=== PATIENT | male | born 1960 | race Caucasian/White ===

== ENCOUNTER 2016-12-18 11:17 | Emergency (ER) | payer BC ==
[2016-12-18] MEDS ORDERED: NS 0.9% 1000 ML* 2,000 ML IV ONE (12:27)
[2016-12-18] MEDS ORDERED: Ketorolac INJ* 30 MG/ML 1 ML VIAL IV ONE (12:27)
[2016-12-18] MEDS ORDERED: Morphine INJ* 4 MG/ML 1 ML CARPUJECT IV ONE ×2 (12:27→16:37)
[2016-12-18] MEDS ORDERED: Ondansetron INJ* 2 MG/ML VIAL IV ONE (12:27)
[2016-12-18 13:04] LABS: Urine Bacteria Absent (Absent); Urine Bilirubin Negative (Negative); Urine Glucose Negative (Negative); Urine Nitrite Negative (Negative)
[2016-12-18 13:10] LABS: Hematocrit 44 % (42-52); Hemoglobin 14.6 g/dl (14.0-18.0); Mean Corpuscular HGB Conc 33 g/dl (31-36); Mean Corpuscular Hemoglobin 30 pg (27-31); Mean Corpuscular Volume 91 fL (80-94); Mean Platelet Volume 9 um3 (7.4-10.4); Red Blood Count 4.81 10^6/ul (4.0-5.4); Red Cell Distribution Width 14 % (10.5-15); White Blood Count 14.6 10^3/ul (3.5-10.8)
--- NOTE | 2016-12-18 13:26 | RAD ---
CLINICAL HISTORY: Left flank and abdominal pain COMPARISON: None TECHNIQUE: Multiple contiguous axial CT scans were obtained of the abdomen and pelvis, without intravenous contrast enhancement. Coronal and sagittal multiplanar reformations are submitted for review. Oral contrast was not administered. FINDINGS: The study is limited by the lack of intravenous contrast. This limits evaluation of the solid organs and vasculature. LUNG BASES: The lung bases are clear. LIVER: The liver is normal in shape, size, contour, and attenuation. BILE DUCTS: There is no intrahepatic or extrahepatic biliary dilatation. GALLBLADDER: The gallbladder is normal, without pericholecystic inflammatory change. PANCREAS: The pancreas is normal, without mass or ductal dilatation. SPLEEN: Normal in size and appearance. UPPER GI TRACT: Evaluation of the gastrointestinal tract is limited by incomplete gastric distention. The upper GI tract is unremarkable. SMALL BOWEL AND MESENTERY: The small bowel is normal in contour, course, and caliber. There is no obstruction or dilatation. COLON: The colon is normal in contour, course, caliber. There is no pericolonic inflammatory change. ADRENALS: Normal bilaterally. KIDNEYS: There is perinephric stranding on the left. There are punctate calyceal stones bilaterally. There is minimal pelvic caliectasis on the left. There is a 0.3 cm calculus of the left UPJ. BLADDER: The bladder is smooth in contour. PELVIC ORGANS: The prostate gland is normal. The seminal vesicles are symmetric. AORTA: The aorta is normal. IVC: Unremarkable LYMPH NODES: There is no lymphadenopathy by size criteria. ABDOMINAL WALL: There is a large fat-containing umbilical hernia BONES AND SOFT TISSUES: Mild degenerative changes are noted OTHER: None IMPRESSION: 1. BILATERAL NEPHROLITHIASIS WITH A 0.3 CM LEFT UPJ STONE AND MINIMAL HYDRONEPHROSIS ON THE LEFT. 2. LARGE FAT-CONTAINING UMBILICAL HERNIA
[2016-12-18] MEDS ORDERED: Tamsulosin CAP* 0.4 MG PO ONE (13:38)
[2016-12-18 16:24] LABS: ALT 15 U/L (7-52); Albumin 4.4 g/dL (3.2-5.2); Alkaline Phosphatase 66 U/L (34-104); BUN/Creatinine Ratio 24.4 (8-20); Blood Urea Nitrogen 22 mg/dL (6-24); CO2 Carbon Dioxide 26 mmol/L (22-32); Calcium 9.4 mg/dL (8.6-10.3); Chloride 100 mmol/L (101-111); EGFR African American 112.7 (>60); EGFR Non-African American 87.6 (>60); Globulin 3.3 g/dL (2-4); Glucose 83 mg/dL (70-100); Sodium 131 mmol/L (133-145); Total Protein 7.7 g/dL (6.4-8.9)
[2016-12-18] MEDS ORDERED: oxyCODONE/Acetamin 5/325 MG* TAB PO ONE (16:37)
--- NOTE | 2016-12-18 16:43 | ED ---
Colt Menendez Anna, scribed for Domingo Jones MD on 12/18/16 at 1231 . Abdominal Pain/Male - HPI Summary HPI Summary: Patient is a 56 y/[facility] with the sudden onset of intermittent left flank pain that began two hours ago. He describes the pain as severity 9/10. He has additionally experienced an increase in the frequency of urination. Nothing alleviates or exacerbates the pain. Denies Hx of renal calculi or previous abd surgeries. NKDA. - History of Current Complaint Chief Complaint: EDFlankPain Stated Complaint: LT SIDE FLANK PAIN Time Seen by Provider: 12/18/16 11:44 Hx Obtained From: Patient, Family/Handy Worker - Accompanied by Pain Intensity: 9 Pain Scale Used: 0-10 Numeric - Allergies/Home Medications Allergies/Adverse Reactions: Allergies Allergy/AdvReac Type Severity Reaction Status Date / Time No Known Allergies Allergy Verified 12/18/16 11:34 PMH/Surg Hx/FS Hx/Imm Hx Endocrine/Hematology History: Denies: Hx Diabetes Cardiovascular History: Reports: Hx Angina, Hx Hypertension Denies: Hx Congestive Heart Failure, Hx Coronary Artery Disease, Hx Hypercholesterolemia, Hx Myocardial Infarction, Hx Valvular Heart Disease Respiratory History: Reports: Hx Asthma - allergies, Hx Seasonal Allergies, Hx Sleep Apnea Denies: Hx Chronic Obstructive Pulmonary Disease (COPD) History: Denies: Hx Kidney Stones Musculoskeletal History: Reports: Hx Arthritis, Other Musculoskeletal History - (right) hip Sensory History: Reports: Hx Contacts or Glasses Opthamlomology History: Reports: Hx Contacts or Glasses Neurological History: Reports: Other Neuro Impairments/Disorders - vertigo since 12/28/12 Psychiatric History: Reports: Hx Anxiety - PRN [facility] [place] for travel anxiety - Surgical History Surgery Procedure, Year, and Place: 2008- [facility] - radiofrequency closure of (right ) greater saphenous vein Infectious Disease History: No Infectious Disease History: Denies: Traveled Outside the [place] in Last 30 Days - Family History Known Family History: Positive: Hypertension, Diabetes, Other - gout Negative: Cardiac Disease - Social History Occupation: Employed Full-time Lives: With Family Alcohol Use: None Substance Use Type: Reports: None Smoking Status (MU): Never Smoked Tobacco Review of Systems Positive: Abdominal Pain - flank pain Positive: frequency All Other Systems Reviewed And Are Negative: Yes Physical Exam Triage Information Reviewed: Yes Vital Signs On Initial Exam: Initial Vitals Temp Pulse Resp BP Pulse Ox 97.7 F 75 16 146/81 98 12/18/16 11:34 12/18/16 11:34 12/18/16 11:34 12/18/16 11:34 12/18/16 11:34 Vital Signs Reviewed: Yes Appearance: Positive: Well-Appearing, Pain Distress - moderate Skin: Positive: Warm, Skin Color Reflects Adequate Perfusion, Dry Head/Face: Positive: Normal Head/Face Inspection Eyes: Positive: EOMI, JUSTIN ENT: Positive: Normal ENT inspection Neck: Positive: Supple, Nontender Respiratory/Lung Sounds: Positive: Clear to Auscultation, Breath Sounds Present Cardiovascular: Positive: RRR Abdomen Description: Positive: Nontender, Soft Bowel Sounds: Positive: Present Musculoskeletal: Positive: Normal, Strength/ROM Intact Neurological: Positive: Normal, Sensory/Motor Intact, Alert, Oriented to Person Place, Time Psychiatric: Positive: Affect/Mood Appropriate - Judd Coma Scale Coma Scale Total: 15 Diagnostics - Vital Signs Vital Signs Temp Pulse Resp BP Pulse Ox 12/18/16 12:04 97.8 F 80 20 134/72 96 12/18/16 12:03 97.8 F 72 20 149/78 96 12/18/16 12:01 97.8 F 75 20 149/78 100 12/18/16 11:34 97.7 F 75 16 146/81 98 - Laboratory Lab Results: Lab Results 12/18/16 12/18/16 12/18/16 Range/Units 12:25 13:00 13:00 WBC 14.6 H (3.5-10.8) 10^3/ul RBC 4.81 (4.0-5.4) 10^6/ul Hgb 14.6 (14.0-18.0) g/dl Hct 44 (42-52) % MCV 91 (80-94) fL MCH 30 (27-31) pg MCHC 33 (31-36) g/dl RDW 14 (10.5-15) % Plt Count 275 (150-450) 10^3/ul MPV 9 (7.4-10.4) um3 Neut % (Auto) 79.7 (38-83) % Lymph % (Auto) 10.3 L (25-47) % Jackson % (Auto) 7.1 (1-9) % Eos % (Auto) 2.3 (0-6) % Baso % (Auto) 0.6 (0-2) % Absolute Neuts (auto) 11.7 H (1.5-7.7) 10^3/ul Absolute Lymphs (auto) 1.5 (1.0-4.8) 10^3/ul Absolute Monos (auto) 1.0 H (0-0.8) 10^3/ul Absolute Eos (auto) 0.3 (0-0.6) 10^3/ul Absolute Basos (auto) 0.1 (0-0.2) 10^3/ul Absolute Nucleated RBC 0 10^3/ul Nucleated RBC % 0 INR (Anticoag Therapy) 0.96 (0.89-1.11) APTT 34.8 (26.0-36.3) seconds Sodium (133-145) mmol/L Potassium Chloride (101-111) mmol/L Carbon Dioxide (22-32) mmol/L Anion Gap BUN (6-24) mg/dL Creatinine (0.67-1.17) mg/dL Est GFR ( Amer) (>60) Est GFR (Non-Af Amer) (>60) BUN/Creatinine Ratio (8-20) Glucose (70-100) mg/dL Calcium (8.6-10.3) mg/dL Total Bilirubin (0.2-1.0) mg/dL AST ALT (7-52) U/L Alkaline Phosphatase (34-104) U/L Total Protein (6.4-8.9) g/dL Albumin (3.2-5.2) g/dL Globulin (2-4) g/dL Albumin/Globulin Ratio (1-3) Urine Color Yellow Urine Appearance Clear Urine pH 5.0 (5-9) Ur Specific [place] 1.014 (1.010-1.030) Urine Protein Negative (Negative) Urine Ketones Negative (Negative) Urine Blood 2+ H (Negative) Urine Nitrate Negative (Negative) Urine Bilirubin Negative (Negative) Urine Urobilinogen Negative (Negative) Ur Leukocyte Esterase Negative (Negative) Urine WBC (Auto) Absent (Absent) Urine RBC (Auto) 2+(6-10/hpf) H (Absent) Ur Squamous Epith Cells Present H (Absent) Urine Bacteria Absent (Absent) Urine Glucose Negative (Negative) 12/18/16 Range/Units 13:00 WBC (3.5-10.8) 10^3/ul RBC (4.0-5.4) 10^6/ul Hgb (14.0-18.0) g/dl Hct (42-52) % MCV (80-94) fL MCH (27-31) pg MCHC (31-36) g/dl RDW (10.5-15) % Plt Count (150-450) 10^3/ul MPV (7.4-10.4) um3 Neut % (Auto) (38-83) % Lymph % (Auto) (25-47) % Jackson % (Auto) (1-9) % Eos % (Auto) (0-6) % Baso % (Auto) (0-2) % Absolute Neuts (auto) (1.5-7.7) 10^3/ul Absolute Lymphs (auto) (1.0-4.8) 10^3/ul Absolute Monos (auto) (0-0.8) 10^3/ul Absolute Eos (auto) (0-0.6) 10^3/ul Absolute Basos (auto) (0-0.2) 10^3/ul Absolute Nucleated RBC 10^3/ul Nucleated RBC % INR (Anticoag Therapy) (0.89-1.11) APTT (26.0-36.3) seconds Sodium 131 L (133-145) mmol/L Potassium TNP Chloride 100 L (101-111) mmol/L Carbon Dioxide 26 (22-32) mmol/L Anion Gap TNP BUN 22 (6-24) mg/dL Creatinine 0.90 (0.67-1.17) mg/dL Est GFR ( Amer) 112.7 (>60) Est GFR (Non-Af Amer) 87.6 (>60) BUN/Creatinine Ratio 24.4 H (8-20) Glucose 83 (70-100) mg/dL Calcium 9.4 (8.6-10.3) mg/dL Total Bilirubin 0.50 (0.2-1.0) mg/dL AST TNP ALT 15 (7-52) U/L Alkaline Phosphatase 66 (34-104) U/L Total Protein 7.7 (6.4-8.9) g/dL Albumin 4.4 (3.2-5.2) g/dL Globulin 3.3 (2-4) g/dL Albumin/Globulin Ratio 1.3 (1-3) Urine Color Urine Appearance Urine pH (5-9) Ur Specific [place] (1.010-1.030) Urine Protein (Negative) Urine Ketones (Negative) Urine Blood (Negative) Urine Nitrate (Negative) Urine Bilirubin (Negative) Urine Urobilinogen (Negative) Ur Leukocyte Esterase (Negative) Urine WBC (Auto) (Absent) Urine RBC (Auto) (Absent) Ur Squamous Epith Cells (Absent) Urine Bacteria (Absent) Urine Glucose (Negative) Result Diagrams: 12/18/16 13:00 12/18/16 13:00 Lab Statement: Any lab studies that have been ordered have been reviewed, and results considered in the medical decision making process. - CT CT abd/pel CT Interpretation: Positive (See Comments) CT Interpretation Completed By: Radiologist - IMPRESSION: 1. BILATERAL NEPHROLITHIASIS WITH A 0.3 CM LEFT UPJ STONE AND MINIMAL HYDRONEPHROSIS ON THE LEFT. 2. LARGE FAT-CONTAINING UMBILICAL HERNIA Re-Evaluation - Re-Evaluation First Eval Re-Evaluation Time: 13:42 Change: Improved Comment: Patient's pain is somewhat alleviated following medication. Second Eval Re-Evaluation Time: 16:29 Comment: Discussed results and plan of care with patient and family. Patient and family agree with plan. Abdominal Pain Fem Course/Dx - Course Assessment/Plan: Pain improved in ed. Discussed results with patient/. Discharge home stable. - Diagnoses Provider Diagnoses: Kidney stone Discharge - Discharge Plan Condition: Stable Disposition: HOME Prescriptions: Tamsulosin CAP* [Flomax CAP*] 0.4 mg PO DAILY #5 cap oxyCODONE/Acetamin 5/325 MG* [Percocet 5/325 TAB*] 1 tab PO Q4H PRN #20 tab MDD 6 PRN Reason: Pain Patient Education Materials: Kidney Stones (ED) Forms: *Work Release Referrals: Jose Alfredo Cormier MD [Primary Care Provider] - Additional Instructions: FOLLOW UP WITH YOUR PRIMARY CARE DOCTOR AND UROLOGY. RETURN TO THE EMERGENCY DEPARTMENT FOR ANY WORSENING OF YOUR CONDITION; PAIN, FEVER, YOU FEEL ILL OR QUESTIONS OR CONCERNS. The documentation as recorded by the Colt estrada Anna accurately reflects the service I personally performed and the decisions made by me, Domingo Jones MD.
[2016-12-18 17:05] VITALS: BP 147/84
== END 2016-12-18 17:15 | disposition home or self-care (01) ==
LOC: ED 11:17
DX: N20.0 Calculus of kidney (principal); K42.9 Umbilical hernia without obstruction or gangrene; R10.84 Generalized abdominal pain; R35.0 Frequency of micturition
CPT/HCPCS: 36415; 74176; 80053; 81003; 81015; 85025; 85610; 85730; 96374; 96375; 99284; A9270-GY; J1885; J2270; J2405

== ENCOUNTER 2017-12-16 06:02 | Emergency (ER) | payer BC ==
--- NOTE | 2017-12-16 06:58 | ED ---
Merna Menendez Julia, scribed for Huy Dorsey MD on 12/16/17 at 0650 . Shortness of Breath - HPI Summary HPI Summary: This patient is a 57 year old M [facility] accompanied by his with a chief complaint of SOB last night and upon waking this morning that felt like suffocating, but is currently feeling better. He states he used his CPAP last night with mild relief. He reports intermittent bouts of SOB for the past 6 months. He only uses one pillow while sleeping. Patient denies chest pain, leg pain, wheezing, coughing, and congestion. - History of Current Complaint Chief Complaint: EDShortnessOfBreath Time Seen by Provider: 12/16/17 06:32 Hx Obtained From: Patient Onset/Duration: Lasting Hours Timing: Intermittent Episodes Lasting: Current Severity: Mild Dyspnea At: Rest Associated Signs & Symptoms: Negative Related History: Obesity - Allergy/Home Medications Allergies/Adverse Reactions: Allergies Allergy/AdvReac Type Severity Reaction Status Date / Time No Known Allergies Allergy Verified 12/18/16 11:34 PMH/Surg Hx/FS Hx/Imm Hx Endocrine/Hematology History: Denies: Hx Diabetes Cardiovascular History: Reports: Hx Angina, Hx Hypertension Denies: Hx Congestive Heart Failure, Hx Coronary Artery Disease, Hx Hypercholesterolemia, Hx Myocardial Infarction, Hx Valvular Heart Disease Respiratory History: Reports: Hx Asthma - allergies, Hx Seasonal Allergies, Hx Sleep Apnea Denies: Hx Chronic Obstructive Pulmonary Disease (COPD) History: Denies: Hx Kidney Stones Musculoskeletal History: Reports: Hx Arthritis, Other Musculoskeletal History - (right) hip Sensory History: Reports: Hx Contacts or Glasses Opthamlomology History: Reports: Hx Contacts or Glasses Neurological History: Reports: Other Neuro Impairments/Disorders - vertigo since 12/28/12 Psychiatric History: Reports: Hx Anxiety - PRN Ativan for travel anxiety - Surgical History Surgery Procedure, Year, and Place: [facility] [place] - radiofrequency closure of (right ) greater saphenous vein Infectious Disease History: No Infectious Disease History: Denies: Traveled Outside the [place] in Last 30 Days - Family History Known Family History: Positive: Hypertension, Diabetes, Other - gout Negative: Cardiac Disease - Social History Alcohol Use: None Substance Use Type: Reports: None Smoking Status (MU): Never Smoked Tobacco Review of Systems Negative: Chest Pain Respiratory: Negative - wheezing and chest congestion Positive: Shortness Of Breath. Negative: Cough Negative: Myalgia - leg pain All Other Systems Reviewed And Are Negative: Yes Physical Exam - Summary Physical Exam Summary: Appearance: Well appearing, no pain distress, morbidly obese Skin: warm, dry, reflects adequate perfusion Head/face: normal Eyes: EOMI, JUSTIN ENT: normal, no nasal discharge, mucous membranes are emma Neck: supple, non-tender, no JVD, no lymphadenopathy Respiratory: CTA, breath sounds present, normal working breathing Cardiovascular: RRR, pulses symmetrical, no murmur Abdomen: non-tender, soft, umbilical hernia Bowel: present Musculoskeletal: normal, strength/ROM intact, no LE edema, cyst on R posterior shoulder Neuro: normal, sensory motor intact, A&Ox3 Triage Information Reviewed: Yes Vital Signs On Initial Exam: Initial Vitals Temp Pulse Resp BP Pulse Ox 98 F 76 24 170/81 99 12/16/17 06:03 12/16/17 06:03 12/16/17 06:03 12/16/17 06:03 12/16/17 06:03 Vital Signs Reviewed: Yes Diagnostics - Vital Signs Vital Signs Temp Pulse Resp BP Pulse Ox 12/16/17 06:25 72 15 96 12/16/17 06:23 147/81 12/16/17 06:03 98 F 76 24 170/81 99 - Laboratory Lab Statement: Any lab studies that have been ordered have been reviewed, and results considered in the medical decision making process. Course/Dx - Course Course Of Treatment: morbidly obese with intermittent SOB over 6mo, worse today when trying to wear his CPAP. He felt machine was working appropriately. No recent illness. No CP, sats well. No leg pain. Labs/CXR and ABG pending at sign out. Sign out to Dr. Ponce at 7am. - Diagnoses Provider Diagnoses: Morbidly obese, History of obstructive sleep apnea, Dyspnea Discharge - Discharge Plan Condition: Stable Disposition: OTHER Discharge Disposition Comment: Pt is signed out to Dr. Ponce at the end of shift Referrals: Jose Alfredo Cormier MD [Primary Care Provider] - The documentation as recorded by the Merna estrada Julia accurately reflects the service I personally performed and the decisions made by me, Huy Dorsey MD.
[2017-12-16 07:40] LABS: ABS Basophils 0.1 10^3/ul (0-0.2); ABS Eosinophils 0.2 10^3/ul (0-0.6); ABS Lymphocytes 1.4 10^3/ul (1.0-4.8); ABS Monocytes 0.8 10^3/ul (0-0.8); ABS Neutrophils 6.6 10^3/ul (1.5-7.7); ABS Nucleated RBC 0 10^3/ul; Eosinophil % 2.4 % (0-6); Hematocrit 42 % (42-52); Hemoglobin 14.7 g/dl (14.0-18.0); Lymphocyte % 15.7 % (25-47); Mean Corpuscular HGB Conc 35 g/dl (31-36); Mean Corpuscular Hemoglobin 31 pg (27-31); Mean Corpuscular Volume 91 fL (80-94); Mean Platelet Volume 8 um3 (7.4-10.4); Nucleated Red Blood Cells % 0.1; Platelet Count 277 10^3/ul (150-450); Red Blood Count 4.68 10^6/ul (4.0-5.4); Red Cell Distribution Width 14 % (10.5-15); White Blood Count 9.1 10^3/ul (3.5-10.8)
[2017-12-16 07:55] LABS: EGFR Non-African American 111.1 (>60)
--- NOTE | 2017-12-16 08:43 | RAD ---
INDICATION: Shortness of breath. COMPARISON: Comparison is made with a prior study from March 01, 2015. TECHNIQUE: Dual-energy PA and lateral views of the chest were obtained. FINDINGS: The heart is within normal limits in size. Mediastinal and hilar contours appear within normal limits. The lungs are underinflated and clear. No pleural effusion is seen. IMPRESSION: NO EVIDENCE FOR ACTIVE CARDIOPULMONARY DISEASE.
[2017-12-16 11:25] VITALS: BP 135/70
--- NOTE | 2017-12-16 22:00 | ED ---
Brian Menendez Tiffany, scribed for Montse Markham MD on 12/16/17 at 0957 . Progress - Progress Note Progress Note: Patient not signed out to Dr. Ponce. Dr. Markham will assume patient care. - EKG/XRAY/CT XRAY: chest - Radiologist interprets NO EVIDENCE FOR ACTIVE CARDIOPULMONARY DISEASE. ED physician has reviewed this radiology report. Course/Dx - Course Course Of Treatment: 10:58 reevaluation The documentation as recorded by the Brian estrada Tiffany accurately reflects the service I personally performed and the decisions made by Rashi garcia Barbara J, MD.
== END 2017-12-16 11:24 | disposition home or self-care (01) ==
LOC: ED 06:02
DX: R06.09 Other forms of dyspnea (principal); R06.02 Shortness of breath; I10 Essential (primary) hypertension; I20.9 Angina pectoris, unspecified; F41.9 Anxiety disorder, unspecified; E66.01 Morbid (severe) obesity due to excess calories; G47.33 Obstructive sleep apnea (adult) (pediatric); I45.10 Unspecified right bundle-branch block; Z79.899 Other long term (current) drug therapy
CPT/HCPCS: 36415; 71046; 80053; 83880; 84443; 84484; 85025; 93005; 99283

== ENCOUNTER 2019-12-08 08:46 | Emergency (ER) | payer BC, OTHER ==
--- OUTSIDE RECORDS SUMMARY | 2019-12-08 09:00 | XMS REPORT | Continuity of Care Document ---
:1960 External Reference #:[id number] Author Name Maureen Reardon NP (transmitted by agent of provider Julia Whelan) Address [address], [address] [place] [address] Care Team Providers Name Role Phone Jose Alfredo Cormier MD - Family Medicine Care Team Information Living Supervisor Problems Active Problems Provider Date Essential hypertension Zohreh Laird M.D. Onset: 03/25/2015 Morbid obesity Az Yousif M.D., [facility] Onset: 04/12/2015 Abnormal results of cardiovascular Az Yousif M.D., [facility] Onset: function studies Obstructive sleep apnea of adult Cher Stover DNP, RN, Onset: 04/15/2015 [facility] Note: severe Right bundle branch block Az Yousif M.D., [facility] Onset: 10/11/2015 Difficulty breathing Az Yousif M.D., [facility] Onset: 10/11/2015 Social History Type Date Description Comments Sex Unknown Tobacco Use Start: Unknown Never Smoked Cigarettes Smoking Status Reviewed: 11/26/19 Never Smoked Cigarettes ETOH Use Rarely consumes beer Tobacco Use Start: Unknown Patient has never smoked Recreational Drug Use Denies Drug Use Exercise Type/Frequency Exercises sporadically Allergies, Adverse Reactions, Alerts Description No Known Drug Allergies Medications Active Medications SIG Qnty Indications Ordering Provider Date Toprol XL 1 by mouth every Unknown 100mg Tablets day ER 24HR Spironolactone/Hydroch 1 by mouth every Unknown lorothiazide day 25-25mg Tablets Albuterol Inhaler 2 puffs every 4 hr Unknown as needed Aspirin 1 daily Unknown 81mg Fluticasone Propionate 2 sprays each Unknown nostril everyday 50mcg/Act Suspension Cpap qhs Unknown Breo Ellipta 1 puff inhaled Unknown daily 100-25mcg/Inh Aerosol Citalopram 3 tabs by mouth Jose Alfredo Cormier, Hydrobromide every evening 10mg Tablets Medications Administered in Office Medication SIG Qnty Indications Ordering Provider Date Depomedrol 80MG HETAL Gordon 08/09/2011 Injection Depomedrol 80MG HETAL Gordon 05/29/2011 Injection Immunizations CPT Code Status Date Vaccine Lot # [id number] Given 04/15/2015 Fluvirin Im 3Yrs And Older Vital Signs Date Vital Result Comment 11/26/2019 2:06pm Height 68 inches 5'8" Weight 347.00 lb Heart Rate 76 /min BP Systolic Sitting 150 mmHg Lue large cuff BP Diastolic Sitting 82 mmHg Lue large cuff O2 % BldC Oximetry 96 % On Ra BMI (Body Mass Index) 52.8 kg/m2 02/05/2019 10:27am Height 68 inches 5'8" Weight 342.00 lb Heart Rate 67 /min BP Systolic Sitting 136 mmHg BP Diastolic Sitting 76 mmHg Respiratory Rate 20 /min O2 % BldC Oximetry 96 % room air BMI (Body Mass Index) 52.0 kg/m2 Results Description No Information Available Procedures Date Code Description Status 11/10/2019 53115 Diffusing Capacity Completed 11/10/2019 81086 Plethysmography Determination Lung Volumes & Per Airway Completed Resist 11/10/2019 27356 Pulmonary Function><Bronchodil Completed Medical Devices Description No Information Available Encounters Type Date Location Provider Dx Diagnosis Office Visit 11/26/2019 [facility]en J45.909 Unspecified asthma, 2:[facility] uncomplicated Is Analyst G47.33 Obstructive sleep apnea (adult) (pediatric) E66.9 Obesity, unspecified Assessments Date Code Description Provider 11/26/2019 J45.909 Unspecified asthma, uncomplicated aMureen Reardon NP 11/26/2019 G47.33 Obstructive sleep apnea (adult) (pediatric) Maureen Reardon NP 11/26/2019 E66.9 Obesity, unspecified Maureen Alexys, MEDICAL LAB TECHNOLOGIST 11/10/2019 J45.909 Unspecified asthma, uncomplicated Letty Chauhan MD Plan of Treatment Future Appointment(s):11/25/2020 2:30 pm - Maureen [facility]ardon [facility]11/26/2019 - Maureen Reardon NPJ45.909 Unspecified asthma, uncomplicatedFollow up:1 yearG47.33 Obstructive sleep apnea (adult) (pediatric)E66.9 Obesity, unspecifiedReferral:Ines Askew MD, Internal Medicine Functional Status Description No Information Available Mental Status Description No Information Available Referrals Refer to Dr Reason for Referral Status Appt Date Ines Askew MD Medically supervised weight loss Created [address] [place] [address] [phone]
[2019-12-08 09:21] VITALS: BP 152/88
--- NOTE | 2019-12-08 10:13 | UC ---
Elbow Pain - HPI Summary HPI Summary: PATIENT FELL YESTERDAY AND LANDED ON [place]HALT ON HIS LEFT ELBOW. HAS SWELLING, BRUISING AND PAIN BUT FULL RANGE OF MOTION. STATES THE SWELLING HAS ACTUALLY IMPROVED SINCE YESTERDAY. - History of Current Complaint Chief Complaint: UCUpperExtremity Stated Complaint: ELBOW INJURY Time Seen by Provider: 12/08/19 09:17 Hx Obtained From: Patient Onset/Duration: Traumatic, Still Present Severity Initially: Moderate Severity Currently: Moderate Pain Intensity: 5 Pain Scale Used: 0-10 Numeric Location Of Pain: Is Discrete @ - LEFT ELBOW Character: Sharp Aggravating Factor(s): Other - TOUCH Alleviating Factor(s): Rest Associated Signs And Symptoms: Positive: Swelling, Bruising - Allergies/Home Medications Allergies/Adverse Reactions: Allergies Allergy/AdvReac Type Severity Reaction Status Date / Time No Known Allergies Allergy Verified 12/18/16 11:34 PMH/Surg Hx/FS Hx/Imm Hx - Additional Past Medical History Additional PMH: ALLERGIES Cardiovascular History: Hypertension Respiratory History: Asthma - Surgical History Surgical History: Yes Surgery Procedure, Year, and Place: [place]- [facility] [place]frequency closure of (right ) greater saphenous vein - Family History Known Family History: Positive: Hypertension, Diabetes, Other - gout Negative: Cardiac Disease - Social History Alcohol Use: None Substance Use Type: None Smoking Status (MU): Never Smoked Tobacco Household Exposure Type: Cigarettes - Immunization History Most Recent Influenza Vaccination: 2013 Most Recent Tetanus Shot: unk Most Recent Pneumonia Vaccination: none Review of Systems All Other Systems Reviewed And Are Negative: Yes Constitutional: Positive: Negative Skin: Positive: Negative Respiratory: Positive: Negative Cardiovascular: Positive: Negative Gastrointestinal: Positive: Negative Musculoskeletal: Positive: Arthralgia, Edema. Negative: Decreased ROM Physical Exam Triage Information Reviewed: Yes Appearance: Well-Appearing, No Pain Distress, Well-Nourished Vital Signs: Initial Vital Signs Temp 96.8 F 12/08/19 09:18 Pulse 63 12/08/19 09:18 Resp 16 12/08/19 09:18 BP 152/88 12/08/19 09:18 Pulse Ox 97 12/08/19 09:18 Vital Signs Reviewed: Yes Eyes: Positive: Conjunctiva Clear ENT: Positive: Hearing grossly normal Neck: Positive: Supple Respiratory: Positive: No respiratory distress, No accessory muscle use Cardiovascular: Positive: Pulses Normal Musculoskeletal: Positive: ROM Intact, Edema @ - OVERLYING LEFT OLECRANON, Other : - TTP LEFT OLECRANON PROCESS. Neurological: Positive: Alert Psychological: Positive: Age Appropriate Behavior Skin: Positive: Other - BRUISING LEFT ELBOW AND FOREARM. Negative: Rashes Diagnostics - Radiology LEFT ELBOW XRAYS Radiology Interpretation Completed By: Radiologist Summary of Radiographic Findings: SOFT TISSUE SWELLING, NO FRACTURE IS SEEN Elbow Pain Course/Dx - Course Course Of Treatment: NO FRACTURE SEEN ON X-RAY TODAY. PRESENTATION MOST CONSISTENT WITH BURSITIS. CONSUELO WRAP APPLIED BY RN. ADVISED OTC MEDICATIONS NEEDED FOR DISCOMFORT. REST , ICE, COMPRESS, ELEVATE. FOLLOW-UP IF NEEDED. - Differential Dx/Diagnosis Provider Diagnosis: Olecranon bursitis, left elbow Discharge ED - Sign-Out/Discharge Documenting (check all that apply): Patient Departure All imaging exams completed and their final reports reviewed: Yes - Discharge Plan Condition: Stable Disposition: HOME Patient Education Materials: Elbow Bursitis (ED) Referrals: Pam Benavides MD [Medical Doctor] - If Needed Jose Alfredo Cormier MD [Primary Care Provider] - If Needed Additional Instructions: LEFT ELBOW X-RAYS TODAY SHOW SOFT TISSUE SWELLING BUT NO FRACTURE. REST COMPRESS, ICE, ELEVATE. KEEP THE ELBOW PROTECTED. IT MAY TAKE SEVERAL WEEKS FOR YOUR SYMPTOMS TO COMPLETELY RESOLVE. SEEK FOLLOW-UP WITH YOUR PCP OR ORTHOPEDICS IF YOU FEEL YOUR SYMPTOMS ARE NOT IMPROVING EXPECTED. OTC NSAIDS NEEDED FOR DISCOMFORT. - Billing Disposition and Condition Condition: STABLE Disposition: Home
== END 2019-12-08 10:20 | disposition home or self-care (01) ==
LOC: UCEAST 08:46
DX: M70.22 Olecranon bursitis, left elbow (principal); S50.02XA Contusion of left elbow, initial encounter; I10 Essential (primary) hypertension; J45.909 Unspecified asthma, uncomplicated; Z82.49 Family history of ischemic heart disease and other diseases of the circulatory system; W19.XXXA Unspecified fall, initial encounter; Y92.9 Unspecified place or not applicable
CPT/HCPCS: 99212; G0463